=== PATIENT | female | born 1980 | race Caucasian/White ===

== ENCOUNTER 2022-09-08 09:15 | Outpatient (RCR) | payer OTHER, SELFPAY | END 2022-09-29 11:07 | disposition home or self-care (01) | PROVIDERS: PCP Surgery; Visit Provider Surgery | DX: M54.50 Low back pain, unspecified (principal); Z51.89 Encounter for other specified aftercare | CPT/HCPCS: 97110; 97140; 97161 ==

== ENCOUNTER 2022-10-09 07:40 | Outpatient (CLI) | payer OTHER, SELFPAY ==
--- NOTE | 2022-10-09 08:00 | CRLHL7_ITS ---
For Patients: As a result of the Century Cures Act, medical imaging exams and procedure reports are released immediately into your electronic medical record. You may view this report before your referring provider. If you have questions, please contact your health care provider. INDICATION: Right upper quadrant pain TECHNIQUE: 38t-Fx-Nghpmvudtd 5.37mCi was injected intravenously. Images of the liver, gallbladder and abdomen were obtained for 45 minutes. CCK was then administered and imaging continued for an additional 27 minutes. COMPARISON: None FINDINGS: There is good uptake of activity by the hepatocytes. There is visualization of the biliary tree, gallbladder and small bowel. In response to 2.16 mcg Kinevac administration, there is a decreased gallbladder ejection fraction of 13 percent. IMPRESSION: 1. Patent cystic duct. 2. Decreased gallbladder ejection fraction of 13 percent consistent with impaired gallbladder emptying and gallbladder dysfunction. Dictated by Elier Vargas MD @ 10/13/2022 8:50:14 AM (Electronically Signed)
== END 2022-10-09 07:41 | disposition home or self-care (01) ==
LOC: NM 07:42
PROVIDERS: PCP Surgery; Visit Provider Family Medicine
DX: R10.11 Right upper quadrant pain (principal)
CPT/HCPCS: 78227; A9537; J2805

== ENCOUNTER 2022-11-27 06:09 | Day surgery (SDC) | payer OTHER, SELFPAY ==
[2022-11-27] VITALS (14 sets, daily range): BP systolic 113–144; BP diastolic 60–101; PULSE 65–85; RESP 12–18; TEMP 36.6–36.9; O2SAT 93–100; BMI 44.5
[2022-11-27] MEDS: LACTATED RINGERS 1000 ML 1,000 ML 100 ML IV ×2 (06:20→07:56)
[2022-11-27 06:43] LABS: Ur HCG Qualitative* Negative (Negative)
[2022-11-27] MEDS: SODIUM CHLORIDE 0.9 % (FLUSH) 10 ML SYRINGE IVF (07:12)
[2022-11-27] MEDS: SCOPOLAMINE 1 MG/3 DAY PATCH 1 PATCH TRANSDERMA (07:21)
--- NOTE | 2022-11-27 07:54 | W.ANESCHARGE ---
Anesthesia Charges Start Date/Time Anesthesia Start Date: 11/27/22 Anesthesia Start Time: 07:42 Stop Date/Time Anesthesia Stop Date: 11/27/22 Anesthesia Stop Time: 08:58
[2022-11-27] MEDS: CEFAZOLIN 2 GM INJ IVP (07:55)
[2022-11-27] MEDS: BUPIVACAINE 0.25% 30 ML 20 ML INJECTION (08:45)
--- NOTE | 2022-11-27 09:02 | P.GSOP_ITS ---
Operative Note Pre-op diagnosis: Biliary dyskinesia Post-op diagnosis: Same Type of Procedure: Laparoscopic cholecystectomy Indications: The patient is a 42-year-old female with a history of right upper quadrant pain after eating. Workup revealed a normal gallbladder ultrasound but a HIDA scan showing ejection fraction of 13% indicative of biliary dyskinesia. I recommended cholecystectomy and she agreed to proceed. Procedure Description: After discussing the risks and benefits of the procedure, the patient signed informed consent.? The operative site was marked and the patient was brought to the operating room and placed on the operating table in supine position.? Care was taken to pad the patient's pressure points.?? The patient was then intubated by anesthesia.?? The operative site was then prepped and draped in the usual sterile fashion.? A time-out was then performed. Entrance to the abdomen was gained via a 5 mm Visiport in the left upper quadrant. The abdomen was insufflated and briefly surveyed for signs of injury. There was none. A 10 mm umbilical port was placed as well as 2 working ports along the right costal margin, all under direct vision. The patient was then placed in reverse Trendelenburg position with the right side up. The gallbladder fundus was grasped and retracted cephalad. A small amount of dissection was needed to free omental adhesions from the gallbladder. The infundibulum was grasped. A combination of hook cautery and blunt dissection was used to carefully dissect out the cystic duct and artery until they could clearly be seen entering the gallbladder without any intervening structures. The gallbladder was dissected off the cystic plate to achieve the critical view. Once this was achieved the cystic duct and artery were each clipped with 2 clips proximally and 1 clip distally and transected with the scissors. The gallbladder was then taken off of the liver bed and removed from the abdomen using an Endo- Catch bag. The gallbladder bed was surveyed for hemostasis which appeared adequate. The umbilical port fascia was closed with 0 Vicryl using a Kurt- Jorge A device. The remaining ports were then removed and the abdomen desufflated. The skin was closed with absorbable subcuticular suture. Instrument sponge and needle counts were correct at the end of the case. The pat ient was then woken and transferred to the PACU in stable condition. Sterile dressings were then applied. ? The patient tolerated the procedure well. Findings: Gallbladder with some adhesions about the infundibulum. Anesthesia: GETA Surgeon: Katherine Conner MD Estimated blood loss (mL): 5 Specimen: Gallbladder Condition: stable Disposition: PACU Date of procedure: 11/27/22
[2022-11-27] MEDS: fentaNYL 100 MCG/2 ML inj 50 MCG IVP ×2 (09:04→09:10)
--- NOTE | 2022-11-27 09:29 | W.ANESCHARGE ---
Anesthesia Charges Start Date/Time Anesthesia Start Date: 11/27/22 Anesthesia Start Time: 07:42 Stop Date/Time Anesthesia Stop Date: 11/27/22 Anesthesia Stop Time: 08:58
[2022-11-27] MEDS: KETOROLAC 15 MG/ML inj IVP (10:26)
== END 2022-11-27 11:56 | disposition home or self-care (01) ==
PROVIDERS: PCP Surgery; Visit Provider Surgery
PROC: 0FT44ZZ Resection of Gallbladder, Percutaneous Endoscopic Approach (ICD-10-PCS; CPT 47562; principal; 2022-11-27 07:30)
DX: K82.8 Other specified diseases of gallbladder (principal)
CPT/HCPCS: 47562; 00790; 81025; 88304; A9270; J0330; J0665; J0690; J1100; J1885; J2250; J2405; J2704; J3010; J3490; J7120